=== PATIENT | male | born 1995 | race Two or more races ===

== ENCOUNTER 2023-07-24 20:43 | Emergency (ER) | payer SELFPAY ==
[2023-07-24 20:48] VITALS: BP 126/71; PULSE 82; RESP 17; TEMP 99.8; BMI 30.4
[2023-07-24] MEDS ORDERED: IBUPROFEN 600 MG TABLET (FP) PO ONE (21:22)
[2023-07-24] MEDS ORDERED: DEXAMETHASONE SOD PHOSPHATE 10 MG/1 ML VIAL ONE (21:22)
[2023-07-24] MEDS: DEXAMETHASONE SOD PHOSPHATE 10 MG/1 ML VIAL IM ONE (21:25)
[2023-07-24] MEDS: IBUPROFEN 600 MG TABLET (FP) PO ONE (21:25)
== END 2023-07-24 21:56 | disposition home or self-care (01) ==
LOC: JERFT 20:43
PROC: 3E023GC Introduction of Other Therapeutic Substance into Muscle, Percutaneous Approach (ICD-10-PCS; principal; 2023-07-24)
DX: J02.9 Acute pharyngitis, unspecified (principal); R50.9 Fever, unspecified; R13.10 Dysphagia, unspecified; R07.0 Pain in throat; J03.90 Acute tonsillitis, unspecified
CPT/HCPCS: 87651; 99284-25; J1100

== ENCOUNTER 2023-11-17 20:35 | Emergency (ER) | payer OTHER ==
[2023-11-17 20:43] VITALS: BP 134/72; PULSE 73; RESP 18; TEMP 98.3; BMI 27.4
[2023-11-17] MEDS ORDERED: OXYMETAZOLINE 0.05% NASAL SOLUTION 15 ML BOTTLE NS ONE (22:17)
== END 2023-11-17 22:41 | disposition home or self-care (01) ==
LOC: JERFT 20:35
DX: H93.8X3 Other specified disorders of ear, bilateral (principal)
CPT/HCPCS: 99283-25